=== PATIENT | female | born 1980 | race Caucasian/White ===

== ENCOUNTER 2016-11-01 21:32 | Emergency (ER) | payer OTHER ==
[~2016-11-01] VITALS: Ht 157.5 cm; Wt 58.7 kg
[~2016-11-01 21:32] MED LIST: FLEXERIL10 MG PO; MOTRIN600 MG PO
[2016-11-02 00:01] LABS: EOSINOPHIL (%) 2.5 % (0-5); EOSINOPHIL COUNT 0.1 K/uL (0-0.3); HEMATOCRIT 35.3 % (36.0-46.0); IMMATURE GRANULOCYTE (%) 0.4 % (0.0-0.7); IMMATURE GRANULOCYTE COUNT 0.2 K/uL; LYMPHOCYTE COUNT 1.7 K/uL (1.0-2.8); MCH 30.1 PG (29.0-34.0); MCV 88.5 FL (83-99); MEAN PLAT.VOLUME 10.2 uM^3 (9.5-12.4); MONOCYTE (%) 12.6 % (3-12); MONOCYTE COUNT 0.7 K/uL (0-0.8); NEUTROPHIL (%) 51.4 % (45-76); NEUTROPHIL COUNT 2.7 K/uL (1.8-6.4); PLATELET COUNT 207 K/uL (156-360); RBC DIS.WIDTH-CV 12.1 % (11.8-14.6); RBC DIS.WIDTH-SD 38.3 % (39-53); RED BLOOD COUNT 3.99 M/uL (3.80-5.20); WHITE BLOOD COUNT 5.2 K/uL (4.1-10.2)
[2016-11-02 00:05] LABS: CHLORIDE 103 mEq/L (99-109); POTASSIUM 3.5 mEq/L (3.7-5.4); SODIUM 137 mEq/L (136-147)
[2016-11-02 00:07] LABS: GLUCOSE 102 mg/dL (70-99)
[2016-11-02 00:09] LABS: ANION GAP 8 MEQ/L (2-14); TOTAL BILIRUBIN 0.6 mg/dL (0.0-1.0)
[2016-11-02 00:11] LABS: ALKALINE PHOSPHATASE 58 IU/L (3-129); GFR ESTIMATE (CALCULATED) > 59 mL/min/
[2016-11-02 00:12] LABS: UREA NITROGEN (BUN) 10 mg/dL (9-23)
[2016-11-02 00:14] LABS: CREATINE KINASE 42 IU/L (1-294); TOTAL CK 42 IU/L (1-294)
[2016-11-02 00:20] LABS: QUANTITATIVE HCG < 4.0 MIU/ML
[2016-11-02 00:21] LABS: CK-MB < 0.4 ng/mL (0.0-4.9)
[2016-11-02 00:59] LABS: ERTH.SED.RATE 21 MM/HR (0-20)
[2016-11-02 01:30] LABS: INTERNAL CONTROL VALID? YES; MONOSPOT (MONONUCLEOSIS SEROL) NEGATIVE
[2016-11-02 02:21] LABS: C-REACTIVE PROTEIN 44.2 MG/L (0-10)
[2016-11-02] MEDS ORDERED: DELTASONE20 M1 PO (02:55)
[2016-11-02] MEDS ORDERED: DOXYCYCLINE HY100 MG PO (02:55)
[2016-11-02 04:34] VITALS: BP 85/58
[2016-11-04 15:52] LABS: Rickettsia (RMSF) IgG Not Detected (Not Detected); Rickettsia (RMSF) IgM Not Detected (Not Detected)
== END 2016-11-02 04:36 | disposition home or self-care (01) ==
LOC: EME 21:32
PROVIDERS: Emergency Medicine
DX: R21 Rash and other nonspecific skin eruption (principal); M79.89 Other specified soft tissue disorders
CPT/HCPCS: 80053; 82550; 82553; 83605; 84702; 85025; 85651; 86038; 86140; 86308; 86757 90; 87040; 99281; 99284; J2930; J7030; J7050